=== PATIENT | male | born 1980 | race Asian ===

== ENCOUNTER 2023-10-22 17:46 | Emergency (ER) | payer MEDICAID ==
[~2023-10-22] VITALS: Ht 152.4 cm; Wt 66.0 kg
[2023-10-22 17:48] VITALS: RESP 16; TEMP 98.3
[2023-10-22] MEDS ORDERED: TRIA15CR61 TOP (18:23)
[2023-10-22] MEDS ORDERED: dexamethasone sod phosphate 10mg/ml inj IM STA (18:24)
[2023-10-22] MEDS ORDERED: diphenhydrAMINE 50 mg/ml inj IM ONE (18:25)
[2023-10-22 18:48] VITALS: BP 136/93; PULSE 72; O2SAT 97
== END 2023-10-22 18:50 | disposition home or self-care (01) ==
LOC: ER 17:47
DX: R21 Rash and other nonspecific skin eruption (principal); R50.9 Fever, unspecified
CPT/HCPCS: 96372; 99284; J1100; J1200

== ENCOUNTER 2024-07-13 19:42 | Emergency (ER) | payer MEDICAID ==
[~2024-07-13] VITALS: Ht 157.5 cm; Wt 68.0 kg
[2024-07-13 19:49] VITALS: TEMP 98.4
[2024-07-13] MEDS ORDERED: iohexol 300mg/ml 100ml inj. ONE (20:48)
[2024-07-13 20:56] VITALS: BP 148/97
[2024-07-13 21:05] LABS: BASOPHILS % (AUTO) 0.3 % (0-1); EOSINOPHILS # (AUTO) 0.1 X10'3 (0-0.9); EOSINOPHILS % (AUTO) 1.3 % (0-6); HEMATOCRIT 47.6 % (42.0-52.0); HEMOGLOBIN 16.8 g/dl (14.0-17.9); LYMPHOCYTES % (AUTO) 35.3 % (21-51); MEAN CORPUSCULAR HEMOGLOBIN 30.9 PG (27.0-31.0); MEAN CORPUSCULAR HGB CONC 35.2 g/dL (33.0-36.5); MEAN CORPUSCULAR VOLUME 87.7 FL (78-98); MEAN PLATELET VOLUME 8.3 FL (7.4-10.4); MONOCYTES # (AUTO) 0.5 X10'3 (0-0.9); MONOCYTES % (AUTO) 9.1 % (2-12); NEUTROPHILS # (AUTO) 3.1 X10'3 (1.8-7.7); PLATELET COUNT 151 X10'3 (140-440); RED BLOOD COUNT 5.42 X10'6 (4.70-6.10); RED CELL DISTRIBUTION WIDTH 13.6 % (11.5-14.5); WHITE BLOOD COUNT 5.7 X10'3 (4.5-11.0)
[2024-07-13 21:18] LABS: ALANINE AMINOTRANSFERASE 115 U/L (12-78); ALBUMIN/GLOBULIN RATIO 1.1 (1.1-1.5); ALKALINE PHOSPHATASE 52 IU/L (46-116); ANION GAP 9 (8-16); ASPARTATE AMINO TRANSFERASE 52 U/L (10-37); BILIRUBIN,TOTAL 1.5 MG/DL (0.1-1.0); BLOOD UREA NITROGEN 16 MG/DL (7-18); BUN/CREATININE RATIO 18.2 (10.0-20.0); CALCIUM 9.3 MG/DL (8.5-10.1); CHLORIDE 104 MMOL/L (99-107); CREATININE 0.88 MG/DL (0.60-1.10); GLUCOSE 94 MG/DL (70-104); POTASSIUM 3.9 MMOL/L (3.5-5.1); SODIUM 142 MMOL/L (135-145); TOTAL CARBON DIOXIDE 29.4 MMOL/L (24-32); TOTAL PROTEIN 7.7 G/DL (6.4-8.2); eCRCL 82 ML/MIN; eGFR > 90 ML/MIN
[2024-07-13 22:29] VITALS: PULSE 62; RESP 18; O2SAT 98
== END 2024-07-13 22:40 | disposition home or self-care (01) ==
LOC: ER 19:43
DX: S10.93XA Contusion of unspecified part of neck, initial encounter (principal); V86.55XA Driver of 3- or 4- wheeled all-terrain vehicle (ATV) injured in nontraffic accident, initial encounter; Y93.89 Activity, other specified; Y92.89 Other specified places as the place of occurrence of the external cause; Y99.8 Other external cause status
CPT/HCPCS: 36415; 70491; 80053; 85025; 99285; Q9967

== ENCOUNTER 2025-02-05 14:13 | Emergency (ER) | payer MEDICAID ==
[~2025-02-05] VITALS: Ht 157.5 cm; Wt 68.0 kg
[2025-02-05] MEDS ORDERED: famotidine 10mg tablet PO STA (15:39)
[2025-02-05] MEDS ORDERED: FAMO-129 PO (16:14)
[2025-02-05] MEDS ORDERED: PRED20TA PO (16:14)
[2025-02-05] MEDS ORDERED: KEN0.1O TOP (16:14)
[2025-02-05] MEDS ORDERED: DICY20TA17 PO (16:14)
[2025-02-05] MEDS: diphenhydrAMINE 50 mg/ml inj IM ONE (16:15)
[2025-02-05] MEDS: dexamethasone sod phosphate 10mg/ml inj IM STA (16:15)
[2025-02-05] MEDS: famotidine 20mg tablet PO STA (16:18)
[2025-02-05 16:28] VITALS: BP 128/88; PULSE 58; RESP 16; TEMP 98.1; O2SAT 99
== END 2025-02-05 16:33 | disposition home or self-care (01) ==
LOC: ER 14:14
DX: L23.9 Allergic contact dermatitis, unspecified cause (principal)
CPT/HCPCS: 96372; 99284; J1100; J1200